=== PATIENT | female | born 1985 | race Caucasian/White ===

== ENCOUNTER 2019-04-11 07:45 | Day surgery (SDC) | payer BC ==
[~2019-04-11] VITALS: Ht 162.6 cm; Wt 62.1 kg
[~2019-04-11 07:45] MED LIST: SYNTHROID125 MCG PO
--- NOTE | 2019-04-11 09:45 | NUR ---
04/11/19 0956 Anabel Barrett 0952-PATIENT ARRIVED TO PACU ON 2L NC AWAKE DROWSY. DENIES PAIN OR NAUSEA. IVF INFUSING. ENCOURAGED TO PASS GAS. ABDOMEN SOFT. RR EVEN.
--- NOTE | 2019-04-11 16:54 | OR ---
[facility] [address], [place] [address] Signed DATE OF OPERATION: 04/11/2019 SURGEON: Tony Garcia MD PREOPERATIVE DIAGNOSES: 1. Maternal grandfather with colon cancer, age 57. 2. Sister with multiple colonic polyps starting age 30. 3. Paternal cousin with multiple colonic polyps starting age 30. POSTOPERATIVE DIAGNOSIS: Minimal internal hemorrhoids. PROCEDURE: Colonoscopy without biopsy. ESTIMATED BLOOD LOSS: None. INDICATIONS: Kera is a 34-year-old female who first came to us at age 26 for her initial colonoscopy. That was unremarkable. However, her paternal grandfather did have colon cancer at age 57 and from that colon cancer. Her sister had colonic polyps removed along with her paternal cousin. Consequently, her family goes every 5 years for repeat colonoscopies. She thinks her older brother has been negative on several colonoscopies. In the meantime, she has no lower GI complaints. They just moved into the new house and so she ended up going 7 years instead of 5 for her followup. In the office, I gave her a pamphlet on colonoscopy and we reviewed that together along with the risk including, but not limited to gas bloating, crampy abdominal pain, bleeding, perforation, requiring surgery, and missed diagnosis. She did well with Versed and fentanyl previously. She expressed understanding and wished to proceed. PROCEDURE NOTE: Kera was taken into our endoscopy suite and placed in the left lateral decubitus position. She was given IV sedation with 9 mg of Versed and 150 mcg of fentanyl. A digital rectal exam was performed and this was unremarkable. The adult colonoscope was introduced and advanced all around into the cecum under direct visualization of camera without difficulty. Her prep was quite excellent. The cecum and appendiceal orifice and ileocecal valve were very easily identified. We had taken pictures for photodocumentation. The scope was slowly withdrawn. We saw no pathology throughout the entire colon or rectum. Upon retroflexion of scope, she has just a very tiny internal Electronically Signed By: TONY GARCIA MD 04/11/19 1654 PATIENT NAME: KERA CHAO OPERATIVE REPORT DATE OF : 83 REPORT #: [id number] PHYSICIAN: TONY GARCIA MD PCP: ARON ZENG REPORT IS CONFIDENTIAL AND NOT TO BE RELEASED WITHOUT AUTHORIZATION [facility] [address] [place] [id number] Signed hemorrhoid columns. After this, the gas was suctioned out and colonoscope removed. Kera tolerated procedure quite well. RECOMMENDATIONS: Kera can follow up in 5 years for repeat colonoscopy. MD SUELLEN Grajeda/AROLDOL /[id number] cc: JUAN JOSÉ Nunez MD Copies: ARON ZENG ANDREW L MD ~ Electronically Signed By: TONY GARCIA MD 04/11/19 1654 PATIENT NAME: KERA CHAO OPERATIVE REPORT DATE OF : 83 REPORT #: [id number] PHYSICIAN: TONY GARCIA MD PCP: ARON ZENG PAC REPORT IS CONFIDENTIAL AND NOT TO BE RELEASED WITHOUT AUTHORIZATION
== END 2019-04-11 10:35 | disposition home or self-care (01) ==
LOC: OPS 07:45 → DS 07:45 → OPS 09:00
PROVIDERS: Colon & Rectal Surgery
PROC: 0DJD8ZZ Inspection of Lower Intestinal Tract, Via Natural or Artificial Opening Endoscopic (ICD-10-PCS; principal; 2019-04-11 09:00)
DX: Z12.11 Encounter for screening for malignant neoplasm of colon (principal); K64.8 Other hemorrhoids; Z98.890 Other specified postprocedural states; Z80.0 Family history of malignant neoplasm of digestive organs; Z83.71 Family history of colonic polyps
CPT/HCPCS: 99153; G0500; J2250; J3010; J7120